=== PATIENT | male | born 1995 | race Caucasian/White ===

== ENCOUNTER 2019-08-26 19:46 | Emergency (ER) | payer OTHER ==
[~2019-08-26] VITALS: Ht 172.7 cm; Wt 81.5 kg
--- NOTE | 2019-08-26 19:55 | NUR ---
EKG DONE IN TRIAGE
--- NOTE | 2019-08-26 20:05 | NUR ---
THIS IS A 24 YO M W/ C/O LOC AFTER A BOXING CLASS. PT STATES HE WAS PARTICIPATING WHEN HE SUDDENLY FELT LIGHT HEADED, WALKED OUT OF CLASS THEN HAD A SYNCOPAL EPISODE. UNKNOWN DURATION OF LOC. PT REPORTS PAIN IN BACK OF HEAD. DENIES DIZZINESS/CP/SOB. RESP EVEN AND UNLABORED. VS STABLE. CALL LIGHT IN REACH. DENIES FURTHER NEEDS AT THIS TIME.
--- NOTE | 2019-08-26 20:10 | NUR ---
IN ROOM FOR GRACIELA
[2019-08-26 20:14] VITALS: BP 136/89
[2019-08-26] MEDS ORDERED: ACETAMINOPHEN 500 MG TABLET ONE (20:30)
[2019-08-26] MEDS ORDERED: SODIUM CHLORIDE 0.9% 1,000ML IVBOLUS ONE (20:30)
[2019-08-26] MEDS ORDERED: SODIUM CHLORIDE FLUSH 10ML SYR IVF ONE (20:30)
[2019-08-26] MEDS ORDERED: ACETAMINOPHEN 325 MG TABLET PO ONE (20:30)
--- NOTE | 2019-08-26 20:33 | NUR ---
PIV STARTED, LABS DRAWN, 1L NS BOLUS STARTED. PT MEDICATED PER EMAR.
[2019-08-26 20:40] LABS: BASOPHILS # (AUTO) 0.02 x10^3/uL (0-0.1); BASOPHILS % (AUTO) 0 % (0-1); EOSINOPHILS # (AUTO) 0.01 x10^3/uL (0-0.4); EOSINOPHILS % (AUTO) 0 % (1-7); LYMPHOCYTES % (AUTO) 12 % (22-44); MD NO; MEAN CORPUSCULAR HEMOGLOBIN 30.8 pg (27.5-34.5); MEAN CORPUSCULAR HGB CONC 34.2 g/dL (33.2-36.2); MEAN CORPUSCULAR VOLUME 90.2 fL (81-97); MEAN PLATELET VOLUME 7.8 fL (7.4-10.4); MONOCYTES # (AUTO) 0.55 x10^3/uL (0.2-0.8); MONOCYTES % (AUTO) 5 % (2-9); NEUTROPHILS # (AUTO) 8.69 x10^3/uL (1.8-6.8); NEUTROPHILS % (AUTO) 82 % (42-75); PLATELET COUNT 288 x10^3/uL (130-400); RED BLOOD COUNT 5.13 x10^6/uL (4.38-5.82)
[2019-08-26] MEDS ORDERED: ISOTRETINOIN PO (20:43)
--- NOTE | 2019-08-26 20:46 | NUR ---
Mariana gold in [facility] - 08/26/19 at 2046 by TRIP DISCUSSED NEED FOR PRN PAIN MEDIATION WITH ABIODUN CMAP, WHO WILL INPUT ORDERS.
[2019-08-26 20:48] LABS: ALBUMIN 4.3 g/dL (3.4-5.0); ANION GAP 6 mmol/L (5-15); CALCIUM 9.2 mg/dL (8.5-10.1); CHLORIDE 106 mmol/L (98-107)
[2019-08-26 20:52] LABS: ALANINE AMINOTRANSFERASE 43 U/L (12-78); ALKALINE PHOSPHATASE 46 U/L (45-117); BILIRUBIN,TOTAL 0.6 mg/dL (0.2-1.0); CREATININE 1.05 mg/dL (0.7-1.3); TOTAL PROTEIN 8.1 g/dL (6.4-8.2)
--- NOTE | 2019-08-26 20:53 | NUR ---
PT TO RAD.
== END 2019-08-26 21:34 | disposition home or self-care (01) ==
LOC: ED 21:25
DX: R55 Syncope and collapse (principal); E86.0 Dehydration; R51 Headache
CPT/HCPCS: 36415; 70450; 80053; 85025; 93005; 96360; 99284; J7030